=== PATIENT | male | born 1945 | race Hispanic/Latino ===

== ENCOUNTER → 2022-04-16 | Outpatient (CLI) | payer OTHER, MEDICARE ==
[~2022-04-16] MED LIST: AEC81 PO; ATOR20TA65 PO; FISH1CAP27 PO; LISI5TAB21 PO; METF-890 PO; METO25TA6 PO; NITR100C9 PO; REGADENOSON 0.4 MG/5 ML PF SYG IVP SCH; TAMS0.4C32 PO; TRAM50TA2 PO; WARF-57 PO
== END | disposition home or self-care (01) ==
LOC: SHCH 08:39
PROVIDERS: ATTEND Internal Medicine Cardiovascular Disease
DX: I48.20 Chronic atrial fibrillation, unspecified (principal); I10 Essential (primary) hypertension; E11.9 Type 2 diabetes mellitus without complications; E78.5 Hyperlipidemia, unspecified; Z79.01 Long term (current) use of anticoagulants; Z95.1 Presence of aortocoronary bypass graft
CPT/HCPCS: 78452; 93017; 96374; A9500 ×2; J2785